=== PATIENT | female | born 1980 | race Caucasian/White ===

== ENCOUNTER 2016-12-15 16:40 | Emergency (ER) | payer OTHER ==
[~2016-12-15 16:40] MED LIST: AMB10 PO; X5 PO; ZYRTEC ALLGY10 MG PO
== END 2016-12-15 16:50 | disposition home or self-care (01) ==
LOC: ER 16:40
DX: I62.00 Nontraumatic subdural hemorrhage, unspecified (principal); F41.9 Anxiety disorder, unspecified; Z79.899 Other long term (current) drug therapy
CPT/HCPCS: 70450; 99284